=== PATIENT | male | born 1995 | race African-American/Black ===

== ENCOUNTER 2023-11-11 16:13 | Emergency (ER) | payer OTHER ==
[2023-11-11] MEDS ORDERED: Ibuprofen 800 MG TAB ONE (18:35)
== END 2023-11-11 18:41 | disposition home or self-care (01) ==
LOC: ERS 16:13
DX: S60.212A Contusion of left wrist, initial encounter (principal); S60.512A Abrasion of left hand, initial encounter; V00.841A Fall from standing electric scooter, initial encounter